=== PATIENT | male | born 1950 | race Caucasian/White ===

== ENCOUNTER 2025-02-25 12:34 | Outpatient (CLI) | payer MEDICARE ==
[2025-02-25 14:04] LABS: #Basophils Less than 0.03 10x3/uL (0.0-0.2); #Eosinophils Less than 0.03 10x3/uL (0.0-0.7); #Monocytes 0.27 10x3/uL (0.11-0.59); #Neutrophils 3.65 10x3/uL (1.40-6.50); %Basophils 0.4 % (0.0-1.0); %Eosinophils 0.2 % (0.0-10.0); %Lymphocytes 17.8 % (21.0-51.0); %Monocytes 5.6 % (0.0-10.0); %Neutrophils 75.6 % (42.0-75.0); Hematocrit 37.4 % (42.0-52.0); Hemoglobin 11.9 g/dL (14.0-18.0); Mean Corpuscular Hemoglobin 29.8 pg (27.0-31.0); Mean Corpuscular Volume 93.7 fL (78.0-98.0); Platelet Count 193 10x3/uL (130-400); Red Blood Cell (RBC) Count 3.99 mill/uL (4.70-6.10); White Blood Cell (WBC) Count 4.83 10x3/uL (4.8-10.8)
[2025-02-25 14:22] LABS: INR-International Normal Ratio 1.0; Prothrombin Time 13.5 sec (12.0-14.7)
[2025-02-25 14:36] LABS: Anion Gap 16 mmol/L (10-20); BUN (Urea Nitrogen) 43 mg/dL (8.4-25.7); Calc. Creatinine Clearance 0 mL/min (70-130); Calcium 8.4 mg/dL (7.8-10.44); Carbon Dioxide 19 mmol/L (23-31); Chloride 108 mmol/L (98-107); Glucose 437 mg/dL (83-110); Potassium 4.9 mmol/L (3.5-5.1); Sodium 138 mmol/L (136-145)
== END 2025-02-25 12:35 | disposition home or self-care (01) ==
LOC: LABBT 12:34
PROVIDERS: ATTEND Orthopaedic Surgery
DX: Z01.818 Encounter for other preprocedural examination (principal)
CPT/HCPCS: 80048; 85025; 85610; 87081; 93005; 93010

== ENCOUNTER 2025-03-05 08:14 | Observation (INO) | payer MEDICARE ==
[2025-03-04 08:53] VITALS: BMI 26.8
[2025-03-05] MEDS ORDERED: Tranexamic Acid 1,000 MG/10 ML VIAL ONE (09:10)
[2025-03-05] MEDS ORDERED: Vancomycin HCl 1.5 GM VIAL ONE (09:10)
[2025-03-05] MEDS ORDERED: Ondansetron PF 4 MG/2 ML Vial IVP PRN (10:00)
[2025-03-05] MEDS ORDERED: diphenhydrAMINE 50 MG/ML VIAL IVP PRN (10:00)
[2025-03-05] MEDS ORDERED: diphenhydrAMINE 50 MG/ML VIAL IM PRN (10:00)
[2025-03-05] MEDS ORDERED: oxyCODONE 5 MG TAB PO PRN (10:00)
[2025-03-05] MEDS ORDERED: HYDROcodone/Acetaminophen 5/325 mg Tablet PO PRN ×2 (10:00)
[2025-03-05] MEDS ORDERED: FENTANYL 500 MCG/10 ML VIAL 500 MCG, Bupivacaine 0.75% 10 ML in Sodium Chloride 0.9% 80 ML EPIDURAL SCH (10:00)
[2025-03-05] MEDS ORDERED: fentaNYL PF 100 MCG/2 ML SYRINGE ONE ×2 (10:09→10:59)
[2025-03-05] MEDS ORDERED: Rocuronium Bromide 10 MG/ML (10ML VIAL) ONE (10:16)
[2025-03-05] MEDS ORDERED: Lidocaine 1.5% w/Epi 1:200K 30 ML VIAL (Epid Use) ONE (10:16)
[2025-03-05] MEDS ORDERED: PROPOFOL 200 MG/20 ML VIAL ONE (10:16)
[2025-03-05] MEDS ORDERED: Ondansetron PF 4 MG/2 ML Vial ONE (11:32)
[2025-03-05] MEDS ORDERED: Bupivacaine 0.25% HCL 30 ML VIAL ONE (11:42)
[2025-03-05] MEDS ORDERED: SUGAMMADEX SODIUM 200 MG/2 ML VIAL ONE (11:44)
[2025-03-05] MEDS ORDERED: Acetaminophen 325 MG TAB PO PRN (12:34)
[2025-03-05] MEDS: Finasteride 5 MG TAB PO SCH (20:38)
[2025-03-05] MEDS: Ferrous Gluconate 324 MG TAB PO SCH (20:38)
[2025-03-05] MEDS: Aspirin 81 mg Enteric Coated Tablet PO SCH (20:38)
[2025-03-05] MEDS: Carvedilol 6.25 MG TAB PO SCH (20:38)
[2025-03-05] MEDS: Insulin Glargine 30 UNITS/0.3 ML VIAL SC SCH (20:39)
[2025-03-05] MEDS: Senokot S 8.6-50 MG TAB PO SCH (20:40)
[2025-03-06] MEDS: diphenhydrAMINE 25 MG CAP PO PRN (01:47)
[2025-03-06 05:31] LABS: Hematocrit 31.3 % (42.0-52.0); Hemoglobin 9.9 g/dL (14.0-18.0); Mean Corpuscular Hemoglobin 29.9 pg (27.0-31.0); Mean Corpuscular Volume 94.6 fL (78.0-98.0); Platelet Count 145 10x3/uL (130-400); Red Blood Cell (RBC) Count 3.31 mill/uL (4.70-6.10); White Blood Cell (WBC) Count 8.91 10x3/uL (4.8-10.8)
[2025-03-06 05:43] LABS: Anion Gap 13 mmol/L (10-20); BUN (Urea Nitrogen) 30 mg/dL (8.4-25.7); Calc. Creatinine Clearance 47 mL/min (70-130); Calcium 7.8 mg/dL (7.8-10.44); Carbon Dioxide 20 mmol/L (23-31); Chloride 109 mmol/L (98-107); Glucose 136 mg/dL (83-110); Potassium 4.8 mmol/L (3.5-5.1); Sodium 137 mmol/L (136-145)
[2025-03-06] MEDS ORDERED: HYDROcodone/Acetaminophen 10/325 mg Tablet PO PRN (08:56)
[2025-03-06] MEDS ORDERED: Losartan 25 MG TAB PO SCH (09:00)
[2025-03-06] MEDS: Multivitamin W/ Minerals 1 TAB PO SCH (09:34)
[2025-03-06] MEDS: Sulfameth/Trimethoprim DS 800-160mg TAB PO SCH (09:34)
[2025-03-06] MEDS: Losartan 25 MG TAB PO SCH (09:36)
[2025-03-06] MEDS: Insulin Glargine 30 UNITS/0.3 ML VIAL SC SCH (09:36)
[2025-03-06] MEDS: HYDROcodone/Acetaminophen 10/325 mg Tablet PO PRN (09:40)
[2025-03-06 11:26] VITALS: BP 167/76; TEMP 97.7
[2025-03-06] MEDS: metFORMIN 500 MG TAB PO SCH (12:35)
== END 2025-03-06 14:40 | disposition home or self-care (01) ==
LOC: SDC 08:14 → SURG A 14:19 → SDC 15:00 → SURG A 15:40
PROVIDERS: ADMIT Orthopaedic Surgery; ATTEND Orthopaedic Surgery
PROC: 0SR90JZ Replacement of Right Hip Joint with Synthetic Substitute, Open Approach (ICD-10-PCS; principal; 2025-03-05)
PROC: 3E0T3BZ Introduction of Anesthetic Agent into Peripheral Nerves and Plexi, Percutaneous Approach (ICD-10-PCS; 2025-03-05)
DX: M16.11 Unilateral primary osteoarthritis, right hip (principal); M54.16 Radiculopathy, lumbar region; I10 Essential (primary) hypertension; E11.9 Type 2 diabetes mellitus without complications; E78.5 Hyperlipidemia, unspecified; Z87.891 Personal history of nicotine dependence; Z90.49 Acquired absence of other specified parts of digestive tract; Z98.890 Other specified postprocedural states; Z88.8 Allergy status to other drugs, medicaments and biological substances; Z79.4 Long term (current) use of insulin; Z79.84 Long term (current) use of oral hypoglycemic drugs; Z79.899 Other long term (current) drug therapy
CPT/HCPCS: 27130; 64463; 72170; 73501; 80048; 82962; 85027; 97110 ×2; 97116 ×2; 97530; 97535; C1713; C1776; J0665; J2405; J2704; J3010 ×3; J3490 ×2; J7030; 36415; 36416; J1815